=== PATIENT | male | born 1950 | race Caucasian/White ===

== ENCOUNTER → 2017-08-04 | Outpatient (CLI) | payer MEDICARE ==
[~2017-08-04] MED LIST: ACET325T14 PO; AMLO5TAB4 PO; CHRO1TAB6 PO; CLON-364 PO; CLON0.5T20 PO; CLON1TAB23 PO; DIPH1TAB PO; ESCI20TA PO; HYDR-3237 PO; HYDR-3341 PO; HYDR50CA2 PO; LOSA50TA2 PO; METO25TA35 PO; MIRT15TA4 PO; MIRT45TA6 PO; ONDA4TAB10 PO; OXYC-307 PO; PANT40TA3 PO; SIMV20TA PO; [UNRECOGNIZED DRUG - OTHER] PO
== END ==
LOC: CFH 15:12
PROVIDERS: ATTEND Nurse Practitioner Family
DX: L97.812 Non-pressure chronic ulcer of other part of right lower leg with fat layer exposed (principal); M79.89 Other specified soft tissue disorders; M85.871 Other specified disorders of bone density and structure, right ankle and foot

== ENCOUNTER → 2017-08-04 | Outpatient (CLI) | payer MEDICARE | END | disposition home or self-care (01) | LOC: WOUND 13:58 | PROVIDERS: ATTEND Nurse Practitioner Family | DX: L89.510 Pressure ulcer of right ankle, unstageable (principal); S91.001A Unspecified open wound, right ankle, initial encounter; I10 Essential (primary) hypertension; E78.5 Hyperlipidemia, unspecified; F32.9 Major depressive disorder, single episode, unspecified; F17.210 Nicotine dependence, cigarettes, uncomplicated; F12.10 Cannabis abuse, uncomplicated; Z86.73 Personal history of transient ischemic attack (TIA), and cerebral infarction without residual deficits; X58.XXXA Exposure to other specified factors, initial encounter; Y93.89 Activity, other specified; Y92.89 Other specified places as the place of occurrence of the external cause; Y99.8 Other external cause status | CPT/HCPCS: 11042; G0463; WOU0463 ==

== ENCOUNTER → 2017-08-11 | Outpatient (CLI) | payer MEDICARE | END | disposition home or self-care (01) | LOC: WOUND 14:04 | PROVIDERS: ATTEND Nurse Practitioner Family | DX: L89.510 Pressure ulcer of right ankle, unstageable (principal); G25.81 Restless legs syndrome; G61.82 Multifocal motor neuropathy; I10 Essential (primary) hypertension; E78.5 Hyperlipidemia, unspecified; F32.9 Major depressive disorder, single episode, unspecified; F17.210 Nicotine dependence, cigarettes, uncomplicated; F12.10 Cannabis abuse, uncomplicated; Z86.73 Personal history of transient ischemic attack (TIA), and cerebral infarction without residual deficits | CPT/HCPCS: 11042 ==

== ENCOUNTER 2018-09-16 13:33 | Emergency (ER) | payer MEDICARE ==
[~2018-09-16] VITALS: Ht 180.3 cm; Wt 82.0 kg
[~2018-09-16 13:33] MED LIST changes: -CLON-364 PO; +CLON0.5T11 PO; +MIRT45TA57 PO; -MIRT45TA6 PO
[2018-09-16 13:55] VITALS: BP 114/72
[2018-09-16] MEDS ORDERED: PROPARACAINE OPHTH 0.5%, 15ML EACHEYE ONE (14:00)
[2018-09-16] MEDS ORDERED: FLUORESCEIN OPHTHALMIC 1 MG STRIP EACHEYE ONE (14:00)
[2018-09-16] MEDS ORDERED: FLUORESCEIN OPHTHALMIC 1 MG STRIP ONE (14:46)
[2018-09-16] MEDS ORDERED: PROPARACAINE OPHTH 0.5%, 15ML ONE (14:46)
== END 2018-09-16 15:56 | disposition home or self-care (01) ==
LOC: ED 15:50
DX: G89.11 Acute pain due to trauma (principal); H57.11 Ocular pain, right eye; Z86.73 Personal history of transient ischemic attack (TIA), and cerebral infarction without residual deficits
CPT/HCPCS: 99283

== ENCOUNTER 2020-02-02 15:18 | Emergency (ER) | payer MEDICARE ==
[~2020-02-02] VITALS: Ht 180.3 cm; Wt 82.0 kg
[~2020-02-02 15:18] MED LIST changes: +CLON-364 PO; -CLON0.5T11 PO; +MIRT-34 PO; -MIRT15TA4 PO
[2020-02-02 15:39] VITALS: BP 121/78
--- NOTE | 2020-02-02 15:54 | NUR ---
THIS TECH DID EKG
--- NOTE | 2020-02-02 16:11 | NUR ---
TREKKING GUIDE: PT TO ROOM FROM LOBBY VIA ELECTRIC W/C
--- NOTE | 2020-02-02 16:14 | NUR ---
PT BACK TO ROOM FROM LOBBY, REFUSES TO GET UNDRESSED OR ON GURNEY.
--- NOTE | 2020-02-02 17:59 | NUR ---
ERP IN TO SEE PT.
--- NOTE | 2020-02-02 18:09 | NUR ---
PT UPDATED ON POC. PT REFUSING TO PROVIDE URINE, "I TOLD THE DR, I DON'T HAVE TO GO!" ERP NOTIFIED. PCXR COMPLETED, AWAITING LABS.
[2020-02-02 18:43] LABS: ALANINE AMINOTRANSFERASE 10 U/L (12-78); ALBUMIN 3.5 g/dL (3.4-5.0); ANION GAP 7 mmol/L (5-15); CALCIUM 8.9 mg/dL (8.5-10.1); CHLORIDE 103 mmol/L (98-107); CREATININE 0.82 mg/dL (0.7-1.3)
[2020-02-02 18:46] LABS: ALKALINE PHOSPHATASE 62 U/L (45-117); BILIRUBIN,TOTAL 0.3 mg/dL (0.2-1.0); TOTAL PROTEIN 6.8 g/dL (6.4-8.2)
--- NOTE | 2020-02-02 19:35 | NUR ---
CALL TO LAB INQUIRING ON CBC DELAY. EQUIPMENT MALFUCTION RESULTING IN DELAY. NOTE TO ERP INFORMING.
[2020-02-02 19:43] LABS: BASOPHILS # (AUTO) 0.03 x10^3/uL (0-0.1); BASOPHILS % (AUTO) 0 % (0-1); EOSINOPHILS # (AUTO) 0.16 x10^3/uL (0-0.4); EOSINOPHILS % (AUTO) 2 % (1-7); LYMPHOCYTES # (AUTO) 2.42 x10^3/uL (1-3.4); LYMPHOCYTES % (AUTO) 25 % (22-44); MD NO; MEAN CORPUSCULAR HGB CONC 32.5 g/dL (33.2-36.2); MEAN CORPUSCULAR VOLUME 92.2 fL (81-97); MEAN PLATELET VOLUME 7.6 fL (7.4-10.4); MONOCYTES # (AUTO) 0.45 x10^3/uL (0.2-0.8); MONOCYTES % (AUTO) 5 % (2-9); NEUTROPHILS # (AUTO) 6.52 x10^3/uL (1.8-6.8); NEUTROPHILS % (AUTO) 68 % (42-75); PLATELET COUNT 257 x10^3/uL (130-400); RED BLOOD COUNT 5.24 x10^6/uL (4.38-5.82); RED CELL DISTRIBUTION WIDTH 14.9 % (9.4-14.8)
--- NOTE | 2020-02-02 19:46 | NUR ---
ALL RESULTS BACK, PT FOR RECHECK.
--- NOTE | 2020-02-02 20:00 | NUR ---
ADD ON TSH. URINE COLLECTED/SENT TO LAB.
[2020-02-02 20:06] LABS: MICROSCOPIC NOT IND
--- NOTE | 2020-02-02 20:29 | NUR ---
RESULTS BACK, PT FOR RECHECK.
--- NOTE | 2020-02-02 21:02 | NUR ---
PT D/C'D HOME, FRIEND DRIVING PT HOME. PT REFUSED VS FOR DISCHARGE.
== END 2020-02-02 21:03 | disposition home or self-care (01) ==
LOC: ED 18:35
DX: F64.8 Other gender identity disorders (principal); I48.91 Unspecified atrial fibrillation; R07.9 Chest pain, unspecified
CPT/HCPCS: 36415; 71045; 80053; 81003; 83605; 84443; 85025; 93005; 99285

== ENCOUNTER → 2020-03-09 | Outpatient (CLI) | payer MEDICARE ==
[~2020-03-09] MED LIST changes: +OMNIPAQUE 350 MG/ML, 100ML BOTTLE ONE
== END | disposition home or self-care (01) ==
LOC: RAD 15:26
PROVIDERS: ATTEND Nurse Practitioner Family
DX: K57.30 Diverticulosis of large intestine without perforation or abscess without bleeding (principal); K86.89 Other specified diseases of pancreas; M85.88 Other specified disorders of bone density and structure, other site; M51.36 Other intervertebral disc degeneration, lumbar region; R63.4 Abnormal weight loss; I70.0 Atherosclerosis of aorta; I72.3 Aneurysm of iliac artery
CPT/HCPCS: 74177; Q9967

== ENCOUNTER → 2020-04-03 | Outpatient (CLI) | payer MEDICARE ==
[~2020-04-03] MED LIST changes: -OMNIPAQUE 350 MG/ML, 100ML BOTTLE ONE
== END | disposition home or self-care (01) ==
LOC: RAD 13:03
PROVIDERS: ATTEND Family Medicine
DX: I67.9 Cerebrovascular disease, unspecified (principal)
CPT/HCPCS: 74230